=== PATIENT | male | born 1950 | race Caucasian/White ===

== ENCOUNTER 2019-07-28 16:49 | Inpatient (IN) | payer MEDICARE ==
[2019-07-28] MEDS ORDERED: LABETALOL 5 MG/ML VIAL MDV IVP STA (17:20)
--- NOTE | 2019-07-28 17:33 | ED ---
General Adult HPI - General Chief complaint: Recheck/Abnormal Lab/Rx Stated complaint: high blood pressure/sent by Time Seen by Provider: 07/28/19 17:14 Source: patient Mode of arrival: ambulatory Limitations: no limitations - History of Present Illness Initial comments: This 69-year-old white male presents for a complaint of hypertension. He states that he was having his ear is cleaned out at the urgent care center and they found that his blood pressure was significantly elevated. He is unsure of the exact reading. He relates that he is essentially asymptomatic from this. He denies any chest pain, shortness of breath, abdominal pain, leg pain or swelling, or headache. He does relate a history of high blood pressure. He previously was on lisinopril and another unknown blood pressure medication but stopped this 3 years ago because his blood pressure was doing fine. He does not follow up with a doctor regularly. No other complaints or modifying factors. - Related Data Home Medications Medication Instructions Recorded Confirmed Aspirin 325 mg PO DAILY PRN 07/28/19 07/28/19 Allergies Allergy/AdvReac Type Severity Reaction Status Date / Time No Known Allergies Allergy Verified 07/28/19 18:07 Review of Systems ROS Statement: Those systems with pertinent positive or pertinent negative responses have been documented in the HPI. ROS Other: All systems not noted in ROS Statement are negative. Past Medical History Past Medical History: Hypertension History of Any Multi-Drug Resistant Organisms: None Reported Past Surgical History: Orthopedic Surgery Additional Past Surgical History / Comment(s): left knee Past Psychological History: No Psychological Hx Reported Smoking Status: Never smoker Past Alcohol Use History: Occasional Past Drug Use History: None Reported General Exam - General Exam Comments Initial Comments: GENERAL: The patient is well nourished and well hydrated. VITAL SIGNS: Heart rate, blood pressure, respiratory rate reviewed as recorded in nurse's notes. EYES: Pupils are round and reactive. Extraocular movements are intact. No conjunctival / lid redness or swelling. ENT: No external evidence of injury, swelling, or ecchymosis. Airway is patent. Throat is clear. NECK: Nontender. No swelling or evidence of injury. No subcutaneous emphysema. Trachea is midline. No thyroid mass. HEART: Regular rate and rhythm. Good peripheral pulses. LUNGS/CHEST: Breath sounds clear and equal bilaterally. No rales, rhonchi, or wheezes. No ecchymosis, subcutaneous emphysema, or tenderness. ABDOMEN: Abdomen soft without tenderness. No palpable masses or organomegaly. No peritoneal signs. No abdominal wall swelling or ecchymosis. EXTREMITIES: No extremity tenderness. Normal muscle tone and function. No thoracolumbar tenderness. NEUROLOGIC: Sensation is grossly intact. Cranial nerve exam reveals face is symmetrical, tongue is midline, speech is clear. SKIN: No abrasions or ecchymosis is noted. No induration or masses noted. PSYCHIATRIC: Alert and oriented. Appropriate behavior and judgment. Limitations: no limitations Course Vital Signs 07/28/19 07/28/19 07/28/19 16:51 18:00 18:12 Temperature 97.8 F Pulse Rate 68 Pulse Rate [ 68 Cap Coverer ] Respiratory 16 Rate Blood Pressure 220/155 192/141 O2 Sat by Pulse 99 Oximetry 07/28/19 07/28/19 07/28/19 18:16 19:28 19:35 Temperature 97.5 F L Pulse Rate 70 78 Pulse Rate [ Cap Coverer ] Respiratory 18 16 Rate Blood Pressure 198/139 212/124 194/129 O2 Sat by Pulse 98 98 Oximetry 07/28/19 07/28/19 07/28/19 20:00 20:15 20:30 Temperature Pulse Rate 86 87 73 Pulse Rate [ Cap Coverer ] Respiratory 17 16 16 Rate Blood Pressure 191/132 158/134 195/141 O2 Sat by Pulse 98 98 98 Oximetry Medical Decision Making - Medical Decision Making The patient was seen and examined. All diagnostics were reviewed. The EKG shows evidence of a left ventricular hypertrophy. It shows a normal sinus rhythm at a rate of 64. The patient has a [place] interval of 146, QRS duration of 102, and QTc interval of 420. An IV is established and he receives 40 mg of labetalol intravenously. He was later given 20 mg of Hydralazine. He had some slight improvement but BP is still elevated at 191/132. He is still asymptomatic on recheck. He is given lisinopril 20 mg orally as he is been on this medication previously. Case is discussed with Dr. Macias from internal medicine and he is agreeable with observation admission. The patient is agreeable as well. The laboratories reviewed and does show some mild renal insufficiency. - Lab Data Result diagrams: 07/28/19 17:37 07/28/19 17:37 Lab Results 02/17/20 02/17/20 Range/Units 17:37 17:37 WBC 5.6 (3.8-10.6) k/uL RBC 4.53 (4.30-5.90) m/uL Hgb 14.9 (13.0-17.5) gm/dL Hct 43.1 (39.0-53.0) % MCV 95.2 (80.0-100.0) fL MCH 32.8 (25.0-35.0) pg MCHC 34.5 (31.0-37.0) g/dL RDW 12.2 (11.5-15.5) % Plt Count 188 (150-450) k/uL Neutrophils % 67 % Lymphocytes % 22 % Monocytes % 7 % Eosinophils % 1 % Basophils % 0 % Neutrophils # 3.8 (1.3-7.7) k/uL Lymphocytes # 1.2 (1.0-4.8) k/uL Monocytes # 0.4 (0-1.0) k/uL Eosinophils # 0.0 (0-0.7) k/uL Basophils # 0.0 (0-0.2) k/uL Sodium 137 (137-145) mmol/L Potassium 3.7 (3.5-5.1) mmol/L Chloride 102 (98-107) mmol/L Carbon Dioxide 31 H (22-30) mmol/L Anion Gap 4 mmol/L BUN 30 H (9-20) mg/dL Creatinine 1.32 H (0.66-1.25) mg/dL Est GFR (CKD-EPI)AfAm 64 (>60 ml/min/1.73 sqM) Est GFR (CKD-EPI)NonAf 55 (>60 ml/min/1.73 sqM) Glucose 88 (74-99) mg/dL Calcium 8.9 (8.4-10.2) mg/dL Total Bilirubin 0.8 (0.2-1.3) mg/dL AST 21 (17-59) U/L ALT 14 (4-49) U/L Alkaline Phosphatase 74 (38-126) U/L Total Protein 6.8 (6.3-8.2) g/dL Albumin 4.2 (3.5-5.0) g/dL Disposition Clinical Impression: Renal insufficiency, Hypertensive crisis Disposition: ADMITTED IP TO THIS HOSP Condition: Fair Is patient prescribed a controlled substance at d/c from ED?: No Time of Disposition: 20:36 Decision Date: 07/28/19 Decision Time: 20:36
[2019-07-28 18:26] LABS: Albumin 4.2 g/dL (3.5-5.0); Calcium 8.9 mg/dL (8.4-10.2); Potassium 3.7 mmol/L (3.5-5.1); Total Bilirubin 0.8 mg/dL (0.2-1.3); Total Protein 6.8 g/dL (6.3-8.2)
[2019-07-28 18:31] LABS: Basophils % (A) 0 %; Eosinophils % (A) 1 %; HCT 43.1 % (39.0-53.0); HGB 14.9 gm/dL (13.0-17.5); Lymphocytes # (A) 1.2 k/uL (1.0-4.8); Lymphocytes % (A) 22 %; MCH 32.8 pg (25.0-35.0); MCHC 34.5 g/dL (31.0-37.0); MCV 95.2 fL (80.0-100.0); Mean Platelet Volume 6.9; Monocytes # (A) 0.4 k/uL (0-1.0); Monocytes % (A) 7 %; Neutrophils # (A) 3.8 k/uL (1.3-7.7); Neutrophils % (A) 67 %; Platelet Count 188 k/uL (150-450); RBC 4.53 m/uL (4.30-5.90); RDW 12.2 % (11.5-15.5); WBC 5.6 k/uL (3.8-10.6)
[2019-07-28] MEDS ORDERED: hydrALAZINE HCL 20 MG/ML 1 ML VIAL IVP STA (18:34)
[2019-07-28] MEDS ORDERED: LISINOPRIL 20 MG TAB PO STA (19:57)
[2019-07-28] MEDS ORDERED: cloNIDine HCL 0.1 MG TAB PO STA (20:15)
[2019-07-28] MEDS ORDERED: ACETAMINOPHEN TAB 325 MG TAB PO PRN (20:37)
[2019-07-28] MEDS ORDERED: ONDANSETRON 4 MG/2 ML VIAL IVP PRN (20:37)
[2019-07-28] MEDS ORDERED: ASPIRIN 325 MG TAB PO PRN (20:40)
--- NOTE | 2019-07-28 22:36 | P.HPIM ---
History of Present Illness H&P Date: 07/28/19 Chief Complaint: Elevated blood pressure The patient is a 69-year-old male with a past medical history of hypertension with noted medical noncompliance the last 2 years who presents to the ER after being referred here from urgent care center where he had earlier pr esented to have his ear examined and flushed. While there apparently the patient's blood pressure is noted to be significantly elevated, he is unable to recall exactly how high it was. The patient denies any chest pain, denies headache, denies blurry vision, denies shortness of breath, denies focal weakness, denies slurred speech, denies facial droop. The patient does report frequent urination, denies dysuria, or flank pain. He otherwise denies all other symptoms. Denies any history of smoking. He reported that he was previously on lisinopril and another antihypertensive medication of which she is unable to recall. In the ER the patient had a comprehensive workup his blood pressure was noted to be elevated 212/124 on presentation, he was given IV hydralazine, labetalol, lisinopril and clonidine. On my evaluation the patient's blood pressure had come down nicely to 138/92. His CBC was unremarkable and Zosyn have a serum bicarb of 31 BUN 30 creatinine 1.32, EKG showed sinus mechanism, incomplete right bundle, left anterior fascicular block, and LVH. The patient was recommended for admission for hypertensive urgency Review of Systems Pertinent positives per HPI all other review of system otherwise negative Past Medical History Past Medical History: Hypertension History of Any Multi-Drug Resistant Organisms: None Reported Past Surgical History: Orthopedic Surgery Additional Past Surgical History / Comment(s): left knee Past Psychological History: No Psychological Hx Reported Smoking Status: Never smoker Past Alcohol Use History: Occasional Past Drug Use History: None Reported Medications and Allergies Home Medications Medication Instructions Recorded Confirmed Type Aspirin 325 mg PO DAILY PRN 07/28/19 07/28/19 History Allergies Allergy/AdvReac Type Severity Reaction Status Date / Time No Known Allergies Allergy Verified 07/28/19 18:07 Physical Exam Vitals: Vital Signs Temp Pulse Pulse Resp BP BP Pulse Ox 07/28/19 21:53 67 16 133/89 98 07/28/19 21:45 81 18 136/92 96 07/28/19 21:30 74 20 158/99 95 07/28/19 21:15 66 16 177/122 95 07/28/19 21:00 87 18 186/134 96 07/28/19 20:45 79 18 185/140 98 07/28/19 20:30 73 16 195/141 98 07/28/19 20:15 87 16 158/134 98 07/28/19 20:00 86 17 191/132 98 07/28/19 19:35 78 16 194/129 98 07/28/19 19:28 97.5 F L 70 18 212/124 98 07/28/19 18:16 198/139 07/28/19 18:12 68 07/28/19 18:00 192/141 07/28/19 16:51 97.8 F 68 16 220/155 99 Intake and Output 07/28/19 07/28/19 07/28/19 06:59 14:59 22:59 Other: Weight 77.111 kg Constitutional: No acute distress, conversant, pleasant Eyes: Anicteric sclerae, moist conjunctiva, no lid-lag, PERRLA ENMT: NC/AT,Oropharynx clear, no erythema, exudates Neck:Supple, FROM, no masses, or JVD, No carotid bruits; No thyromegaly Lungs: Clear to auscultation, Clear to percussion, Normal respiratory effort, no accessory muscle use Cardiovascular: Heart regular in rate and rhythm, No murmurs, gallops, or rubs no peripheral edema Abdominal: Soft Nontender, nom distended, no guarding, no rebound or rigidity, Normoactive bowel sounds No hepatomegaly, No splenomegaly, No palpable mass No abdominal wall hernia noted Skin: Normal temperature, tone, texture, turgor, No induration No subcutaneous nodules, No rash, lesions, No ulcers Extremities:No digital cyanosis No clubbing, Pedal pulses intact and symmetrical Radial pulses intact and symmetrical Normal gait and station, No calf tenderness Psychiatric: Alert and oriented to person, place and time, Appropriate affect Intact judgement Neuro: Muscles Strength 5/5 in all 4 extremities, Sensation to light touch grossly present throughout, Cranial nerves II-XII grossly intact. No focal sensory deficits Results CBC & Chem 7: 07/28/19 17:37 07/28/19 17:37 Labs: Abnormal Lab Results - Last 24 Hours (Table) 07/28/19 Range/Units 17:37 Carbon Dioxide 31 H (22-30) mmol/L BUN 30 H (9-20) mg/dL Creatinine 1.32 H (0.66-1.25) mg/dL Assessment and Plan Assessment: Hypertensive urgency Acute kidney injury versus chronic kidney disease Medical noncompliance Plan: The patient is admitted in observation status and anticipate a less than 2 midnight stay with hypertensive urgency after being referred here from outside urgent care center. On presentation the patient's blood pressure was significantly elevated and is now normalizing after initiation of antihypertensive therapies we'll continue to measure his blood pressure every 4 hours. He started on chlorthalidone and Norvasc for maintenance therapy, will order echocardiogram and renal ultrasound (noted elevated creatinine at 1.32 to rule out possible hypertensive renovascular disease, we'll also obtain a urinalysis and recheck his labs tomorrow. We'll continue to follow his clinical course. CODE STATUS: Full code Discussed plan of care with; patient and his Anticipate discharge place: Home Prophylaxis: SCDs and heparin/ PPI therapy Greater than 60 minutes was spent in evaluation of this patient
[2019-07-28] MEDS: SODIUM CHLORIDE 0.9% 1,000 ML IV SCH (23:00)
[2019-07-29] MEDS: CHLORTHALIDONE 25 MG TAB PO SCH (09:50)
[2019-07-29] MEDS: SODIUM CHLORIDE 0.9% 1,000 ML IV SCH ×2 (09:50→21:06)
[2019-07-29] MEDS: amLODIPine 10 MG TAB PO SCH (09:50)
[2019-07-29] MEDS: ENOXAPARIN 40 MG/0.4 ML SYRINGE SQ SCH (09:50)
[2019-07-29] MEDS: PANTOPRAZOLE 40 MG TABLET PO SCH (09:50)
--- NOTE | 2019-07-29 09:58 | XR ---
EXAMINATION TYPE: XR chest 2V DATE OF EXAM: 07/29/2019 COMPARISON: NONE HISTORY: Hypertension TECHNIQUE: Frontal and lateral views of the chest are obtained. FINDINGS: There is no focal air space opacity, pleural effusion, or pneumothorax seen. The cardiac silhouette size is within normal limits. The aorta is markedly tortuous and dense. The osseous struc tures are intact. Questionable nodular density superimposed over the anterior right fourth rib, linea r area of increased attenuation at the right costophrenic angle may represent atelectasis or scar. IMPRESSION: Cannot exclude lung nodule, follow-up recommended. Probable basilar atelectasis or scarr ing.
[2019-07-29 10:38] LABS: Mucus,Urine Moderate /hpf; RBC,Urine 2 /hpf (0-5); Squamous Epithelial Cell,Urine 2 /hpf (0-4); WBC,Urine 11 /hpf (0-5)
[2019-07-29 10:41] LABS: Color,Urine Yellow
[2019-07-29 10:42] LABS: Appearance,Urine Clear (Clear); Bilirubin,Urine Negative (Negative); Blood,Urine Negative (Negative); Glucose,Urine (UA) 1+ (Negative); Ketones,Urine Negative (Negative); Protein,Urine 1+ (Negative); Specific Gravity,Urine 1.025 (1.001-1.035)
[2019-07-29 10:43] LABS: Leukocyte Esterase,Urine Negative (Negative); Nitrite,Urine Negative (Negative)
--- NOTE | 2019-07-29 10:56 | P.PN ---
Subjective Progress Note Date: 07/29/19 Principal diagnosis: follow up for malignant hypertension Patient seen and examined denies any headache changes in vision denies any chest pain or trouble breathing denies any abdominal pain denies any GI bleeding I counseled the patient regarding blood pressure control and answered a few questions Objective - Vital Signs Vital signs: Vital Signs Temp 97.4 F L 07/29/19 05:30 Pulse 53 L 07/29/19 07:39 Resp 16 07/29/19 07:39 BP 134/92 07/29/19 07:39 Pulse Ox 96 07/29/19 07:39 Intake & Output 07/28/19 07/29/19 07/29/19 18:59 06:59 18:59 Weight 77.111 kg - Exam Constitutional: vital signs stable, Not in acute distress, pleasant, conversa nt ENMT: Bilateral otoscopic exam done per patient request, left ear normal tympanic light reflex clear ear canal, right ear shows crusted blood in the ear canal no earwax patient had his earwax removed yesterday at urgent care Lungs: Clear to auscultation bilaterally, clear to percussion, normal respiratory effort Cardiovascular: Regular rate and rhythm, no murmurs, no gallops, no rubs, no p eripheral edema Gastrointestinal: Soft, no tenderness to palpation, no palpable hepatosplenomegally, bowel sounds positive Extremities: No digital cyanosis or clubbing, peripheral pulses palpable and equal , no calf muscle tenderness Psych: Alert, oriented to place, person and time, appropriate affect, intact judgment Neuro: Cranial nerves II-XII grossly intact, no focal sensory deficits to touch - Labs CBC & Chem 7: 07/28/19 17:37 07/29/19 08:47 Labs: Abnormal Lab Results - Last 24 Hours (Table) 07/28/19 07/29/19 07/29/19 Range/Units 17:37 08:47 10:16 Sodium 136 L (137-145) mmol/L Carbon Dioxide 31 H (22-30) mmol/L BUN 30 H 29 H (9-20) mg/dL Creatinine 1.32 H (0.66-1.25) mg/dL Urine WBC 11 H (0-5) /hpf Urine Mucus Moderate H (None) /hpf Assessment and Plan Assessment: 69-year-old male with hypertension not currently on medications secondary to poor compliance outpatient and no outpatient follow-up. Comes in due to elevated blood pressure that was found at an urgent care when he went to clean his ears patient admitted for malignant hypertension and acute kidney injury currently his blood pressure is better controlled patient's asymptomatic Plan: Malignant hypertension, improved Acute kidney injury, improving Continue with Norvasc and hydrochlorothiazide Close monitoring of blood pressure Follow-up on echocardiogram Follow-up on renal ultrasound Suspected lung nodule on chest x-ray Patient denies history of smoking Patient denies any weight loss Patient denies hemoptysis Consider outpatient follow-up DVT prophylaxis on Lovenox Expected discharge within 24 hours to home Patient voiced concerns regarding affording his medications. He has family members who offered to pay for them I discussed with patient possibility of having these medications filled at certain pharmacies like [facility], for example, where they provide these medications at discount [facility]aval[facility]
--- NOTE | 2019-07-29 11:00 | ECHOF ---
Referral Reason:HTN MEASUREMENTS -------- HEIGHT: 182.9 cm WEIGHT: 77.1 kg BP: 125/96 RVIDd: 3.5 cm (< 3.3) IVSd: 1.5 cm (0.6 - 1.1) LVIDd: 4.4 cm (3.9 - 5.3) LVPWd: 1.7 cm (0.6 - 1.1) IVSs: 1.6 cm LVIDs: 3.5 cm LVPWs: 1.7 cm LA Diam: 3.7 cm (2.7 - 3.8) LAESV Index (A-L): 36.41 ml/m Ao Diam: 3.7 cm (2.0 - 3.7) AV Cusp: 2.0 cm (1.5 - 2.6) MV EXCURSION: 19.783 mm (> 18.000) MV EF SLOPE: 109 mm/s (70 - 150) EPSS: 0.2 cm MV E Fabian: 0.42 m/s MV DecT: 215 ms MV A Fabian: 0.74 m/s MV E/A Ratio: 0.56 RAP: 5.00 mmHg RVSP: 20.60 mmHg FINDINGS -------- Sinus rhythm. This was a technically good study. The left ventricular size is normal. There is moderate concentric left ventricular hypertrophy. O verall left ventricular systolic function is normal with, an EF between 55 - 60 %. The diastolic fi lling pattern is normal for the age of the patient 8.55. The right ventricle is normal in size. The left atrium is moderately dilated. LA is moderately dilated 34-39 ml/m2 The right atrial size is normal. The aortic valve is trileaflet, and appears structurally normal. No aortic stenosis or regurgitation. Mild mitral annular calcification present. Mild mitral regurgitation is present. Mild tricuspid regurgitation present. Right ventricular systolic pressure is normal at < 35 mmHg. There is no evidence of pulmonary hypertension. There is no pulmonic regurgitation present. The aortic root size is normal. There is no pericardial effusion. CONCLUSIONS -------- 1. Sinus rhythm. 2. This was a technically good study. 3. The left ventricular size is normal. 4. There is moderate concentric left ventricular hypertrophy. 5. Overall left ventricular systolic function is normal with, an EF between 55 - 60 %. 6. The diastolic filling pattern is normal for the age of the patient 8.55 7. The right ventricle is normal in size. 8. The left atrium is moderately dilated. 9. LA is moderately dilated 34-39 ml/m2 10. The right atrial size is normal. 11. The aortic valve is trileaflet, and appears structurally normal. No aortic stenosis or regurgitat ion. 12. Mild mitral annular calcification present. 13. Mild mitral regurgitation is present. 14. Mild tricuspid regurgitation present. 15. Right ventricular systolic pressure is normal at < 35 mmHg. 16. There is no evidence of pulmonary hypertension. 17. There is no pulmonic regurgitation present. 18. The aortic root size is normal. 19. There is no pericardial effusion. SURVEY RESEARCH ANALYST: Carola Thurston RDCS
--- NOTE | 2019-07-29 11:42 | US ---
EXAMINATION TYPE: US renals and bladder DATE OF EXAM: 07/29/2019 COMPARISON: NONE CLINICAL HISTORY: elevated creatinine . Abnormal labs EXAM MEASUREMENTS: Right Kidney: 10.0 x 5.2 x 5.1 cm Left Kidney: 10.5 x 5.0 x 4.7 cm Somewhat difficult exam, pt very gassy Right Kidney: No evidence of hydro, visualized portions appeared wnl Left Kidney: No evidence of hydro, visualized portions appeared wnl Bladder: Multiple bladder wall diverticula Bilateral Jets seen: No Cortical medullary differentiation is maintained. No pathologic calcification evident. IMPRESSION: No hydronephrosis evident.
[2019-07-29] MEDS: cloNIDine HCL 0.1 MG TAB PO PRN (16:34)
[2019-07-29] MEDS: LISINOPRIL 20 MG TAB PO SCH (17:23)
[2019-07-30] MEDS: SODIUM CHLORIDE 0.9% 1,000 ML IV SCH (05:47)
[2019-07-30] MEDS: cloNIDine HCL 0.1 MG TAB PO PRN (07:16)
[2019-07-30] MEDS: amLODIPine 10 MG TAB PO SCH (08:46)
[2019-07-30] MEDS: ENOXAPARIN 40 MG/0.4 ML SYRINGE SQ SCH (08:46)
[2019-07-30] MEDS: PANTOPRAZOLE 40 MG TABLET PO SCH (08:46)
[2019-07-30] MEDS: LISINOPRIL 20 MG TAB PO SCH (08:46)
[2019-07-30 09:01] LABS: Basophils % (A) 1 %; Eosinophils # (A) 0.1 k/uL (0-0.7); Eosinophils % (A) 2 %; HCT 40.6 % (39.0-53.0); HGB 13.8 gm/dL (13.0-17.5); Lymphocytes # (A) 0.7 k/uL (1.0-4.8); Lymphocytes % (A) 18 %; MCH 32.8 pg (25.0-35.0); MCHC 34.1 g/dL (31.0-37.0); MCV 96.3 fL (80.0-100.0); Monocytes # (A) 0.2 k/uL (0-1.0); Monocytes % (A) 6 %; Neutrophils % (A) 73 %; Platelet Count 166 k/uL (150-450); RBC 4.22 m/uL (4.30-5.90); RDW 12.4 % (11.5-15.5); WBC 4.2 k/uL (3.8-10.6)
[2019-07-30 09:13] LABS: Potassium 4.1 mmol/L (3.5-5.1)
[2019-07-30] MEDS: CHLORTHALIDONE 25 MG TAB PO SCH (12:13)
--- NOTE | 2019-07-30 12:23 | P.PN ---
Subjective Progress Note Date: 07/30/19 Principal diagnosis: follow up for malignant hypertension Patient seen and examined denies any headache changes in vision denies any chest pain or trouble breathing denies any abdominal pain denies any GI bleeding tolerating PO intake denies any focal neuro deficits his blood pressure this morning was very elevated, but after taking morning meds , BP now normal Objective - Vital Signs Vital signs: Vital Signs Temp 98.1 F 07/30/19 11:40 Pulse 56 L 07/30/19 11:40 Resp 18 07/30/19 11:40 BP 121/83 07/30/19 11:40 Pulse Ox 97 07/30/19 11:40 Intake & Output 07/29/19 07/30/19 07/30/19 18:59 06:59 18:59 Intake Total 240 Balance 240 Weight 77.111 kg Intake: Oral 240 Other: # Voids 2 - Exam Constitutional: vital signs stable, Not in acute distress, pleasant, conversant Lungs: Clear to auscultation bilaterally, clear to percussion, normal respiratory effort Cardiovascular: Regular rate and rhythm, no murmurs, no gallops, no rubs, no peripheral edema Gastrointestinal: Soft, no tenderness to palpation bowel sounds positive Extremities: No digital cyanosis or clubbing, peripheral pulses palpable and equal , no calf muscle tenderness Psych: Alert, oriented to place, person and time, appropriate affect, intact judgment - Labs CBC & Chem 7: 07/30/19 08:31 07/30/19 08:31 Labs: Abnormal Lab Results - Last 24 Hours (Table) 07/30/19 07/30/19 Range/Units 08:31 08:31 RBC 4.22 L (4.30-5.90) m/uL Lymphocytes # 0.7 L (1.0-4.8) k/uL BUN 27 H (9-20) mg/dL Creatinine 1.29 H (0.66-1.25) mg/dL Glucose 104 H (74-99) mg/dL Assessment and Plan Assessment: 69-year-old male with hypertension not currently on medications secondary to poor compliance outpatient and no outpatient follow-up. Comes in due to elevated blood pressure that was found at an urgent care when he went to clean his ears patient admitted for malignant hypertension and acute kidney injury currently his blood pressure is better controlled patient's asymptomatic 07/30 patient will be kept for monitoring and optimizing his blood pressure control this morning his blood pressure was 195/125 then normalized after his morning meds check renal doppler US today possible discharge in AM no OP PCP established will provide with blood pressure monitoring device Plan: Malignant hypertension, improved Acute kidney injury, resolved Continue with Norvasc and chlorthalidone lisinopril added PRN clonidine Close monitoring of blood pressure echocardiogram, LVEF preserved renal ultrasound, no hydronephrosis Suspected lung nodule on chest x-ray Patient denies history of smoking Patient denies any weight loss Patient denies hemoptysis Consider outpatient follow-up DVT prophylaxis on Lovenox Expected discharge in AM patient will need blood pressure monitoring device patient will stay due to very high blood pressure reading this morning , will check renal doppler US patient was asymptomatic , and blood pressure better controlled now after taking his morning meds
[2019-07-31 03:28] VITALS: TEMP 97.8
[2019-07-31 09:16] VITALS: BP 168/118; PULSE 68; RESP 18
[2019-07-31] MEDS: ENOXAPARIN 40 MG/0.4 ML SYRINGE SQ SCH (09:53)
[2019-07-31] MEDS: CHLORTHALIDONE 25 MG TAB PO SCH (09:54)
[2019-07-31] MEDS: PANTOPRAZOLE 40 MG TABLET PO SCH (09:54)
[2019-07-31] MEDS: amLODIPine 10 MG TAB PO SCH (09:55)
[2019-07-31] MEDS: LISINOPRIL 20 MG TAB PO SCH (09:56)
--- NOTE | 2019-07-31 10:01 | US ---
EXAMINATION TYPE: US renal artery duplex complete DATE OF EXAM: 07/31/2019 COMPARISON: NONE CLINICAL HISTORY: MALIGNANT hypertension . MEASUREMENTS: RENAL SIZE: Rt Kidney: 9.9 x 3.8 x 5.4cm Lt Kidney: 9.3 x 4.1 x 4.5 RESISTANCE INDEX Right: 0.57 Left: 0.58 RA/AO RATIO (< 3.5 ) Right: 1.3 Left: 1.9 RA VELOCITY ( < 180 cm/s) Right: 80cm/s Left: 112cm/s Patient has extensive overlying bowel gas making exam technically difficult. Left kidney measures sma ller than previous (2 days prior), this is believed to be due to lower pole being obscured by bowel g as. No evidence of renal artery stenosis by ultrasound, however exam is somewhat limited especially on th e left. Iliacs measure 1.5 centimeter right, 1.4 cm left IMPRESSION: No ultrasound evidence of renal artery stenosis. There is some limitation discussed above.
[2019-07-31 10:28] LABS: Calcium 9.5 mg/dL (8.4-10.2); Potassium 4.3 mmol/L (3.5-5.1)
--- NOTE | 2019-07-31 11:48 | P.DS ---
Providers Date of admission: 07/30/19 08:57 Attending physician: Saul Macias MD Primary care physician: Stated None Hospital Course: FINAL DIAGNOSIS AT DISCHARGE Malignant hypertension , newly diagnosed Acute kidney injury hospital course 69-year-old male with hypertension not currently on medications secondary to poor compliance outpatient and no outpatient follow-up. 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 the high end, but trending down patient asymptmatic , denies any chest pain or trouble breathing, no abd pain no nauseea no vomiting , no focal neuro deficits Constitutional: vital signs stable, Not in acute distress, pleasant, conver jennifer Lungs: Clear to auscultation bilaterally, clear to percussion, normal respiratory effort Cardiovascular: Regular rate and rhythm, no murmurs, no gallops, no rubs, no peripheral edema Gastrointestinal: Soft, no tenderness to palpation bowel sounds positive Extremities: No digital cyanosis or clubbing, peripheral pulses palpable and equal , no calf muscle tenderness Psych: Alert, oriented to place, person and time, appropriate affect, intact judgment follow up [facility] with [facility] monitor your blood pressur e prescriptions sent patient discharged in stable condition DASH diet , monitor blood pressure 40 minutes were spent discharging this patient, and more than 50% of the time was spent in counseling the patient and family and in coordinating care. Procedures: renal artery doppler, no evidence of renal artery stenosis renal US , no evidence of hydronephrosis Echocardiogram , preserved LVEF Patient Condition at Discharge: Stable Plan - Discharge Summary Discharge Rx Participant: No New Discharge Prescriptions: New Chlorthalidone 50 mg PO DAILY #30 tablet Aspirin EC [Ecotrin Low Dose] 81 mg PO DAILY #30 tablet. amLODIPine [Norvasc] 10 mg PO DAILY #30 tab Lisinopril [Zestril] 20 mg PO DAILY #30 tab Discontinued Aspirin 325 mg PO DAILY PRN PRN Reason: EAR ACHE Discharge Medication List Aspirin EC [Ecotrin Low Dose] 81 mg PO DAILY #30 tablet. 07/31/19 [Rx] Chlorthalidone 50 mg PO DAILY #30 tablet 07/31/19 [Rx] Lisinopril [Zestril] 20 mg PO DAILY #30 tab 07/31/19 [Rx] amLODIPine [Norvasc] 10 mg PO DAILY #30 tab 07/31/19 [Rx] Follow up Appointment(s)/Referral(s): [facility] [NON-STAFF] - (Supplier of Blood Pressure Cuff) [facility] [NON-[facility]] - 1 Week Patient Instructions/Handouts: Chronic Hypertension (DC), DASH Eating Plan (DC), Hypertensive Crisis (DC) Discharge Disposition: HOME SELF-CARE
== END 2019-07-31 12:02 | disposition home or self-care (01) | DRG 305 ==
LOC: EC 16:49 → 1SOBS 20:38 → OBSVTOIN 07-30 08:57
PROVIDERS: ADMIT Family Medicine; ATTEND Family Medicine
DX: I16.0 Hypertensive urgency (principal); N17.9 Acute kidney failure, unspecified; I11.9 Hypertensive heart disease without heart failure; I44.4 Left anterior fascicular block; Z79.82 Long term (current) use of aspirin; Z91.19 Patient's noncompliance with other medical treatment and regimen
CPT/HCPCS: 36415; 71046; 76770; 80048; 80053; 81001; 85025; 93005; 93306; 93975; 96372; 96374; 96375; 99285

== ENCOUNTER → 2020-11-10 | Outpatient (CLI) | payer MEDICARE ==
--- NOTE | 2020-11-10 11:40 | US ---
EXAMINATION TYPE: US duplex aorta DATE OF EXAM: 11/10/2020 COMPARISON: NONE CLINICAL HISTORY: Z13.6 screening for cardiovascular disorders. AAA EXAM MEASUREMENTS: Abdominal Aorta: Proximal: 2.5 x 3.1 cm Mid: 1.9 x 1.6 cm Distal: 2.1 x 1.5 cm Bifurcation: 1.7 cm 1.3 cm IMPRESSION: 1. No evidence of abdominal aortic aneurysm.
== END | disposition home or self-care (01) ==
LOC: RADUSWWP 07:21
PROVIDERS: ATTEND Family Medicine
DX: Z13.6 Encounter for screening for cardiovascular disorders (principal)
CPT/HCPCS: 93979